=== PATIENT | female | born 1990 | race Caucasian/White ===

== ENCOUNTER 2016-12-22 09:30 | Inpatient (IN) | payer BC, SELFPAY ==
[~2016-12-22] VITALS: Ht 167.6 cm; Wt 78.5 kg
--- NOTE | ~2016-12-22 | FD ---
ADMIT: 12/22/2016 RM/LOC: 221 [facility] MR#: [id number] [address] [id number] CLARITA GREEN [address] [place] [address] Final Diagnosis SEX: F AGE: 26 : 1990 ADMISSION DATE: 12/22/2016 DISCHARGE DATE: 12/24/2016 FINAL DIAGNOSIS: 1. Term intrauterine at 40 weeks 1 day. 2. Active labor. PROCEDURE: 1. Spontaneous vaginal delivery. 2. Removal of epidural catheter. Tammie King MD/ jerrica JOB #: [id number] CC: Itzel Blandon MD, Attending Physician Itzel Blandon MD, Family Physician
--- NOTE | ~2016-12-22 | HP ---
ADMIT: 12/22/2016 RM/LOC: 221 [facility] MR#: [id number] [address] [facility] [address] [place] [id number] CLARITA GREEN [address] [place] [address] History and Physical SEX: F AGE: 26 : 1990 DATE OF SERVICE: HISTORY OF PRESENT ILLNESS: This is a 26-year-old, G2, P1-0-0-1, with an intrauterine at 40 weeks and 1 day by LMP, consistent with a first- trimester ultrasound. She presents today with complaints of regular painful contractions. Her has been uncomplicated. PAST MEDICAL HISTORY: Nothing. PAST SURGICAL HISTORY: She had pyloric stenosis surgery as a baby. [employer] HISTORY: History of 1 prior spontaneous vaginal delivery at term at 39 weeks. Baby was 5 pounds 14 ounces. MEDICATIONS: 1. She is taking Zoloft 25 mg daily. 2. vitamin daily. ALLERGIES: NO KNOWN DRUG ALLERGIES. FAMILY HISTORY: Noncontributory. SOCIAL HISTORY: No tobacco, no alcohol, no drug use. She is and she is a teacher at [employer]. OB LABS: GBS negative. Blood type is A positive. Antibody screen was negative. Her diabetes 1-hour screen was 84. Gonorrhea and chlamydia were negative. Rubella immune. RPR negative. Hepatitis B surface antigen negative. HIV negative. PHYSICAL EXAMINATION: VITAL SIGNS: Blood pressure is 121/78, pulse is 82, respirations 16, temperature is 97.7. GENERAL: The patient is in no acute distress. She has epidural in place currently. heart tones 120, moderate variability, positive accelerations, no decelerations. [place] shows contractions every 1-2 minutes. HEART: Regular rate and rhythm. No murmurs, rubs, or gallops. LUNGS: Clear to auscultation bilaterally. ABDOMEN: Gravid. Estimated weight of approximately 3200 g. Sterile cervical exam, lip 1/100/0 station AROM with clear fluid. Lot of bloody show ADMIT: 12/22/2016 RM/LOC: 221 [facility] MR#: [id number] [address] [address] CLARITA GREEN [facility] [place] [address] History and Physical SEX: F AGE: 26 : 1990 is present. LOWER EXTREMITIES: No edema. ASSESSMENT AND PLAN: This is a 26-year-old, 2, P1-0-0-1, with intrauterine at 40 weeks and 1 day. 1. Anticipate normal spontaneous vaginal delivery. Risks, benefits, and alternatives were discussed with the patient. She understands risks of delivery to include bleeding, infection, injury to surrounding areas, potential need for additional procedures including operative vaginal delivery or . Consents have been signed. 2. The patient is Rh positive. Rubella immune. 3. The patient is GBS negative. Prophylaxis is not indicated. Tammie King MD/ zeferino JOB #: [id number] CC: Itzel Blandon, Attending Physician Itzel Blandon, Family Physician
[~2016-12-22 09:30] MED LIST: MOTRIN-DPS800 MG PO; NIPPLECREAM TP; PRENATAL VITAM1 EAC6 PO; TYLENOL #3 DPS1 TAB PO
[2016-12-25] MEDS ORDERED: COLACE-DPS100 MG PO (09:40)
[2016-12-25] MEDS ORDERED: DERMOPLAST SPRA56 GM TP (09:40)
[2016-12-25] MEDS ORDERED: TUCKS1 EACH TP (09:40)
[2016-12-25] MEDS ORDERED: LAN-O-SOOTHE7 GM TP (09:41)
--- NOTE | 2017-01-02 18:53 | OR ---
ADMIT: 12/22/2016 RM/LOC: 221 [facility] MR#: [id number] 2620 [facility] [address] [place] [id number] CLARITA GREEN [address] [place] [address] Operative/Delivery Room Report SEX: F AGE: 26 : 1990 SURGERY DATE: 12/22/2016 SURGEON: Tammie King MD PREOPERATIVE DIAGNOSES: 1. Term intrauterine at 40-1/7th weeks. 2. Active labor. PROCEDURES: Spontaneous vaginal delivery. ANESTHESIA: Epidural. ESTIMATED BLOOD LOSS: 250 mL. FINDINGS: Viable male with scores of 7 and 9, and a weight of 6 pounds 14.41 ounces (3130 g). Intact placenta with three-vessel cord. No perineal lacerations noted. INDICATIONS FOR PROCEDURE: This is a 26-year-old -0-0-1, who presented to Labor and Delivery in active labor. Her had been uncomplicated. She progressed normally through labor. She did require AROM for augmentation with clear fluids. She progressed normally through labor. She was found to be complete. DESCRIPTION OF PROCEDURE: Sterile drape was placed on maternal buttocks. With maternal expulsive efforts, head delivered over intact perineum. Nuchal cord x1 was noted, but was tight and unable to be reduced. Infant was delivered through the cord without problem. Cord was reduced. Infant placed on maternal chest. Delayed cord clamping was employed for 1 minute. After scores were noted, cord was clamped and cut. Cord blood was collected. Placenta then delivered spontaneously intact. On examination of the perineum and the vagina, there were no cervical, perineal, or vaginal lacerations noted. Sponge and instrument counts were correct x2. COMPLICATIONS: None. DISPOSITION: Mom stable in delivery room. Infant to nursery. Tammie King MD/ zeferino JOB #: [id number] CC: Itzel Blandon, Attending Physician Itzel Blandon, Family Physician
--- NOTE | 2017-01-02 18:53 | OR ---
ADMIT: 12/22/2016 RM/LOC: 221 [facility] MR#: [id number] [address] [address] CLARITA GREEN [address] [place] [address] Operative/Delivery Room Report SEX: F AGE: 26 : 1990 SURGERY DATE: 12/22/2016 SURGEON: Tammie King MD PREOPERATIVE DIAGNOSES: 1. Status post spontaneous vaginal delivery with use of epidural for anesthesia. 2. No longer need for epidural anesthesia. PROCEDURE: Epidural catheter removal. DESCRIPTION OF PROCEDURE: After delivery of the placenta after spontaneous vaginal delivery, epidural anesthesia was no longer needed. The patient was rolled to the side. Tape removing the epidural catheter was removed until the insertion site was clearly visible. With gentle traction, the epidural catheter was removed. Tip was noted to be intact. In the surrounding area, there was no evidence of erythema, induration, ecchymosis, or bleeding. COMPLICATIONS: None. DISPOSITION: The patient tolerated the procedure well. Tammie King MD/ modl JOB #: [id number] CC: Itzel Blandon, Attending Physician Itzel Blandon, Family Physician
== END 2016-12-24 11:10 | disposition home or self-care (01) | DRG 775 ==
LOC: BC 09:30 → 2LDRP 09:30
PROC: 10E0XZZ Delivery of Products of Conception, External Approach (ICD-10-PCS; principal; 2016-12-22)
PROC: 10907ZC Drainage of Amniotic Fluid, Therapeutic from Products of Conception, Via Natural or Artificial Opening (ICD-10-PCS; principal; 2016-12-22)
DX: O48.0 Post-term pregnancy (principal); O69.81X0 Labor and delivery complicated by cord around neck, without compression, not applicable or unspecified; Z3A.40 40 weeks gestation of pregnancy; Z37.0 Single live birth